=== PATIENT | female | born 1975 | race Caucasian/White ===

== ENCOUNTER 2017-10-06 08:07 | Observation (INO) | payer OTHER ==
[2017-10-06] VITALS (16 sets, daily range): BP systolic 86–146; BP diastolic 53–91
[~2017-10-06] VITALS: Ht 175.3 cm; Wt 110.2 kg
[~2017-10-06 08:07] MED LIST: LEVOTHYROXIN0.025 MG PO; OMEPRAZOLE40 MG PO; SINGULAIR10 MG PO; VICODIN 5/500 T1 TAB PO; ZOLOFT100 MG PO
--- OUTSIDE RECORDS SUMMARY | 2017-10-06 08:14 | External Medical Summary Rpt | CCD ---
Author Author , RAOUL SILVEIRA Address Unknown Phone [email or web address] Purpose Continuity of Care Document - 04-29-2017 through 2016 Problems Code Diagnosis DOS Provider Status D50.0 IRON DEFICIENCY ANEMIA SECONDARY TO BLOOD LOSS (CHRONIC) R00.2 PALPITATION S R07.89 OTHER CHEST PAIN Results Labs Lab Lab Date Result Refere Interp Status Commen Order Detail nces retati t Range on Crossmatch (10-05-2017 13:59) Immedia COMPAT complet te spin 017 COMPAT ed 13:59 L crossma tch Interpr COMPAT complet etation 017 COMPAT ed of 13:59 L major crossma tch resul Blood type and crossmatch (10-05-2017 13:59) Blood O O L complet ABO 017 ed group 13:59 typing Rh POSITIV complet blood 017 E ed group 13:59 POSITIV typing E L Materna NEGATIV NEGATIV complet l 017 E E ed antibod 13:59 NEGATIV y E L screen Blood type & Crossmatch panel in Blood (10-05-2017 13:59) Blood NEGATIV NEGATIV complet group 017 E E ed antibod 13:59 y screen [Presen ce] in Serum or Plasma Rh POSITIV complet [Type] 017 E ed in 13:59 Blood ABO O complet group 017 ed [Type] 13:59 in Blood Blood type & Crossmatch panel in Blood (10-05-2017 13:59) Major COMPAT complet crossma 017 ed tch 13:59 [interp retatio n] Major COMPAT complet crossma 017 ed tch 13:59 [interp retatio n] by Immedia te spin Crossmatch (10-05-2017 13:53) Immedia COMPAT complet te spin 017 COMPAT ed 13:53 L crossma tch Interpr COMPAT complet etation 017 COMPAT ed of 13:53 L major crossma tch resul Blood type & Crossmatch panel in Blood (10-05-2017 13:53) Major COMPAT complet crossma 017 ed tch 13:53 [interp retatio n] Major COMPAT complet crossma 017 ed tch 13:53 [interp retatio n] by Immedia te spin Comprehensive metabolic panel (10-03-2017 15:05) Protein = 7.2 6.4-8.2 complet total 017 gm/dL ed ser/dominique 15:05 s ALT = 77 12-78 complet (SGPT) 017 U/L ed ser/dominique 15:05 s Serum = 51 15-37 complet or 017 U/L ed plasma 15:05 asparta te aminotr ansfera Serum = 137 136-145 complet sodium 017 mmoL/L ed measure 15:05 ment Serum = 3.8 3.5-5.1 complet potassi 017 mmoL/L ed um 15:05 measure ment Serum = 90 74-106 complet or 017 mg/dL ed plasma 15:05 glucose measure ment (mas Serum = 3.3 1.3-3.2 complet globuli 017 gm/dL ed n 15:05 measure ment (mass/v olume) Estimat = 109 59- complet ed 017 ML/MIN ed glomeru 15:05 lar filtrat ion rate (GF Comment: REFERENCE RANGE: >60 ML/MIN/1.73 SQUARE METERS Comment: If this patient is -[place], then multiply the Comment: result by 1.210. Estimat = 210 50-200 complet ion of 017 ML/MIN ed creatin 15:05 ine renal clearan ce Serum = 0.6 0.55-1. complet or 017 mg/dL 02 ed plasma 15:05 creatin ine measure ment ( Carbon = 22 21.0-32 complet dioxide 017 mmoL/L .0 ed 15:05 measure ment Serum = 105 98-107 complet or 017 mmoL/L ed plasma 15:05 chlorid e measure ment (mo Serum = 8.9 8.5-10. complet or 017 mg/dL 1 ed plasma 15:05 calcium measure ment (mas Serum = 13 7-18 complet or 017 mg/dL ed plasma 15:05 urea nitroge n measure men Serum = 0.2 0.2-1.0 complet or 017 mg/dL ed plasma 15:05 total bilirub in measure m Serum = 67 46-116 complet or 017 U/L ed plasma 15:05 alkalin e phospha tase pito Serum = 3.9 3.4-5.0 complet or 017 gm/dL ed plasma 15:05 albumin measure ment (mas Serum = 1.2 1.1-1.8 complet or 017 ed plasma 15:05 albumin /globul in mass ra Cardiac enzymes (10-03-2017 15:05) Serum = 0.9 0-4.0 complet or 017 U/L ed plasma 15:05 creatin e kinase MB (CK-M Serum < 0.02 0.00-0. complet or 017 ng/mL 06 ed plasma 15:05 troponi n i.cardi ac measu Serum = 111 26-192 complet or 017 U/L ed plasma 15:05 creatin e kinase measure m Serum = 1.0 0.0-3.6 complet or 017 ng/mL ed plasma 15:05 creatin e kinase MB measu CBC w auto diff (10-03-2017 15:05) Blood = 7.0 4.8-10. complet leukocy 017 K/MM3 8 ed reina 15:05 count (number /volume ) Automat = 15.8 11.5-17 complet ed 017 % .5 ed erythro 15:05 cyte distrib ution width Red = 3.22 4.2-5.4 complet blood 017 M/mm3 ed cell 15:05 count Blood = 354 142-424 complet platele 017 K/mm3 ed t count 15:05 Automat = 8.0 7.4-10. complet ed 017 fl 4 ed blood 15:05 platele t mean volume pito [place] % = 6.4 % 1.7-9.3 complet 017 ed 15:05 Absolut = 0.5 0.1-1.0 complet e 017 K/mm3 ed monocyt 15:05 e count Automat = 90.5 82.2-97 complet ed 017 fl .8 ed erythro 15:05 cyte mean corpusc ular v Automat = 32.3 31.8-35 complet ed 017 g/dl .4 ed erythro 15:05 cyte mean corpusc ular h Mean = 29.3 27-31.2 complet corpusc 017 pg ed ular 15:05 hemoglo bin (MCH) determ Lymphoc = 36.5 10-50.0 complet yte 017 % ed count, 15:05 blood, automat ed Absolut = 2.6 0.7-4.5 complet e 017 K/mm3 ed lymphoc 15:05 yte count Blood = 9.4 12.2-16 complet hemoglo 017 g/dL .2 ed bin 15:05 measure ment (mass/v olum Blood = 29.2 37.0-47 complet hematoc 017 % .0 ed rit 15:05 (volume fractio n) Granulo = 53.7 37.0-80 complet cyte 017 % .0 ed percent 15:05 age Blood = 3.8 1.8-7.8 complet granulo 017 K/mm3 ed cytes 15:05 automat ed count (numb Automat = 2.5 % 0.1-12. 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: POST TRANSFUSION PT IN ROOM 210 Blood = 8.6 12.2-16 complet hemoglo 017 g/dL .2 ed bin 22:25 measure ment (mass/v olum Blood = 27.0 37.0-47 complet hematoc 017 % .0 ed rit 22:25 (volume fractio n) Leukocyte reduction of packed red blood (09-30-2017 19:22) Leukocy BLOOD complet te 017 UNIT ed reducti 19:22 RELEASE on of BLOOD packed UNIT red RELEASE blood L Comment: Comment: BLOOD UNIT # : [id number] O POS Comment: RELEASED 09/30/17 Polly Pool Blood product special preparation [Type] (09-30-2017 19:22) Blood BLOOD complet product 017 UNIT ed 19:22 RELEASE special prepara tion [Type] Leukocyte reduction of packed red blood (09-30-2017 16:25) Leukocy BLOOD complet te 017 UNIT ed reducti 16:25 RELEASE on of BLOOD packed UNIT red RELEASE blood L Comment: BLOOD UNIT # : [id number] Comment: RELEASED 09/30/17 Kiley Nicole Comment: O POS Blood product special preparation [Type] (09-30-2017 16:25) Blood BLOOD complet product 017 UNIT ed 16:25 RELEASE special prepara tion [Type] Whole blood hemoglobin and hematocrit pa (09-30-2017 15:15) Blood = 7.3 12.2-16 complet hemoglo 017 g/dL .2 ed bin 15:15 measure ment (mass/v olum Comment: CRITICAL RESULTS Comment: RESULTS CALLED TO: HARVEY 09/30/17 1540 Kiley Nicole Blood = 22.7 37.0-47 complet hematoc 017 % .0 ed rit 15:15 (volume fractio n) Comment: CRITICAL RESULTS Comment: RESULTS CALLED TO: HARVEY 09/30/17 1541 BrookeKiley hernández Leukocyte reduction of packed red blood (09-30-2017 12:23) Leukocy BLOOD complet te 017 UNIT ed reducti 12:23 RELEASE on of BLOOD packed UNIT red RELEASE blood L Comment: BLOOD UNIT # : [id number] RELEASED 09/30/17 Comment: Nona Blair Comment: Comment: O POSITIVE Comment: [id number] Blood product special preparation [Type] (09-30-2017 12:23) Blood BLOOD complet product 017 UNIT ed 12:23 RELEASE special prepara tion [Type] Crossmatch (09-29-2017 17:01) Comment: Hold? N Comment: Transfuse now? 2 UNITS NOW Immedia COMPAT complet te spin 017 COMPAT ed 17:01 L crossma tch Interpr COMPAT complet etation 017 COMPAT ed of 17:01 L major crossma tch resul Blood type & Crossmatch panel in Blood (09-29-2017 17:01) Major COMPAT complet crossma 017 ed tch 17:01 [interp retatio n] Major COMPAT complet crossma 017 ed tch 17:01 [interp retatio n] by Immedia te spin Blood type and crossmatch (09-29-2017 16:39) Materna NEGATIV NEGATIV complet l 017 E E ed antibod 16:39 NEGATIV y E L screen Rh POSITIV complet blood 017 E ed group 16:39 POSITIV typing E L Blood O O L complet ABO 017 ed group 16:39 typing Crossmatch (09-29-2017 16:39) Interpr COMPAT complet etation 017 COMPAT ed of 16:39 L major crossma tch resul Immedia COMPAT complet te spin 017 COMPAT ed 16:39 L crossma tch Blood type & Crossmatch panel in Blood (09-29-2017 16:39) Blood NEGATIV NEGATIV complet group 017 E E ed antibod 16:39 y screen [Presen ce] in Serum or Plasma Rh POSITIV complet [Type] 017 E ed in 16:39 Blood ABO O complet group 017 ed [Type] 16:39 in Blood Blood type & Crossmatch panel in Blood (09-29-2017 16:39) Major COMPAT complet crossma 017 ed tch 16:39 [interp retatio n] Major COMPAT complet crossma 017 ed tch 16:39 [interp retatio n] by Immedia te spin
--- OUTSIDE RECORDS SUMMARY | 2017-10-06 08:14 | External Medical Summary Rpt | CCD ---
Author Author , RAOUL SILVEIRA Address Unknown Phone [email or web address] Purpose Continuity of Care Document - 04-29-2017 [...] SQUARE METERS Comment: If this patient is -German, then multiply the Comment: result by 1.210. 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 PT IN ROOM 210 Blood [...] Comment: BLOOD UNIT # : [id number] O POS Comment: RELEASED 09/30/17 Polly Pool Blood product special preparation [Type] (09-30-2017 19:22) Blood BLOOD complet product 017 UNIT ed 19:22 RELEASE special prepara tion [Type] Leukocyte reduction of packed red blood (09-30-2017 16:25) Leukocy BLOOD complet te 017 UNIT ed reducti 16:25 RELEASE on of BLOOD packed UNIT red RELEASE blood L Comment: BLOOD UNIT # : [id number] Comment: RELEASED 09/30/17 Kiley Nicole Comment: [...] Comment: BLOOD UNIT # : [id number] RELEASED 09/30/17 Comment: Nona Blair Comment: Comment: [...]
--- OUTSIDE RECORDS SUMMARY | 2017-10-06 08:15 | External Medical Summary Rpt | CCD ---
Demographics Preferred Language Czech Marital Status Unknown Bahai Affiliation Unknown Race Unknown Ethnic Group Unknown Author Author , GINA SILVEIRA Address Unknown Phone Immunization No patient found.
--- OUTSIDE RECORDS SUMMARY | 2017-10-06 08:15 | External Medical Summary Rpt ---
Author Author RAOUL Cherry, [employer] Organization [employer] Address Unknown Phone Unavailable Results Blood type & Crossmatch panel in Blood Observa Value Referen Units Interpr Notes Date tion ce etation Range Blood NEGATIV NEGATIV No No No Nov 5 group E E informa informa informa 2017 antibod tion in tion in tion in 1:59 PM y source source source screen data data data [Presen ce] in Serum or Plasma Rh POSITIV No No No No Nov 5 [Type] E informa informa informa informa 2017 in tion in tion in tion in tion in 1:59 PM Blood source source source source data data data data ABO O No No No No Nov 5 group informa informa informa informa 2017 [Type] tion in tion in tion in tion in 1:59 PM in source source source source Blood data data data data Blood type & Crossmatch panel in Blood Observa Value Referen Units Interpr Notes Date tion ce etation Range Major COMPAT No No No No Nov 5 crossma informa informa informa informa 2017 tch tion in tion in tion in tion in 1:59 PM [interp source source source source retatio data data data data n] Major COMPAT No No No No Nov 5 crossma informa informa informa informa 2017 tch tion in tion in tion in tion in 1:59 PM [interp source source source source retatio data data data data n] by Immedia te spin Blood type & Crossmatch panel in Blood Observa Value Referen Units Interpr Notes Date tion ce etation Range Major COMPAT No No No No Nov 5 crossma informa informa informa informa 2017 tch tion in tion in tion in tion in 1:53 PM [interp source source source source retatio data data data data n] Major COMPAT No No No No Nov 5 crossma informa informa informa informa 2017 tch tion in tion in tion in tion in 1:53 PM [interp source source source source retatio data data data data n] by Immedia te spin CBC W Auto Differential panel in Blood Observa Value Referen Units Interpr Notes Date tion ce etation Range Basophils 0 - 0.2 K/MM3 Normal No Nov 3 informati 2016 3:05 [#/volume on in PM ] in source Blood by data Automated count Basophils 0.1 - 2.0 % Normal No Nov 3 /100 informati 2016 3:05 leukocyte on in PM s in source Blood by data Automated count Eosinophi 0.0 - 0.4 K/mm3 Normal No Oct 3 ls informati 2016 3:05 [#/volume on in PM ] in source Blood by data Automated count Eosinophi 0.1 - % Normal No Oct 3 ls/100 12.0 informati 2016 3:05 leukocyte on in PM s in source Blood by data Automated count Granulocy 1.8 - 7.8 K/mm3 Normal No Oct 3 reina informati 2016 3:05 [#/volume on in PM ] in source Blood by data Automated count Granulocy 37.0 - % Normal No Oct 3 reina/100 80.0 informati 2016 3:05 leukocyte on in PM s in source Blood by data Automated count Hematocri 37.0 - % Low No Oct 3 t [Volume 47.0 informati 2016 3:05 on in PM Fraction] source of Blood data Hemoglobi 12.2 - g/dL Low No Oct 3 n 16.2 informati 2016 3:05 [Mass/vol on in PM ume] in source Blood data Lymphocyt 0.7 - 4.5 K/mm3 Normal No Oct 3 es informati 2016 3:05 [#/volume on in PM ] in source Unspecifi data ed specimen by Automated count Lymphocyt 10 - 50.0 % Normal No Oct 3 es informati 2016 3:05 [#/volume on in PM ] in source Unspecifi data ed specimen by Automated count Erythrocy 27 - 31.2 pg Normal No Oct 3 te mean informati 2016 3:05 corpuscul on in PM ar source hemoglobi data n [Entitic mass] Erythrocy 31.8 - g/dl Normal No Oct 3 te mean 35.4 informati 2016 3:05 corpuscul on in PM ar source hemoglobi data n concentra tion [Mass/vol ume] by Automated count Erythrocy 82.2 - fl Normal No Oct 3 te mean 97.8 informati 2016 3:05 corpuscul on in PM ar volume source [Entitic data volume] by Automated count Monocytes 0.1 - 1.0 K/mm3 Normal No Oct 3 informati 2016 3:05 [#/volume on in PM ] in source Blood by data Automated count Monocytes 1.7 - 9.3 % Normal No Oct 3 /100 informati 2016 3:05 leukocyte on in PM s in source Blood by data Automated count Platelet 7.4 - fl Normal No Oct 3 mean 10.4 informati 2016 3:05 volume on in PM [Entitic source volume] data in Blood by Automated count Platelets 142 - 424 K/mm3 No No Oct 3 informati informati 2016 3:05 [#/volume on in on in PM ] in source source Blood data data Erythrocy 4.2 - 5.4 M/mm3 Low No Oct 3 reina informati 2016 3:05 [#/volume on in PM ] in source Amniotic data fluid Erythrocy 11.5 - % Normal No Oct 3 te 17.5 informati 2016 3:05 distribut on in PM ion width source [Entitic data volume] by Automated count Leukocyte 4.8 - K/MM3 Normal No Oct 3 s 10.8 informati 2016 3:05 [#/volume on in PM ] in source Blood data Hemoglobin & Hematocrit panel in Blood Observa Value Referen Units Interpr Notes Date tion ce etation 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: POST TRANSFUSION PT IN ROOM 210 Hematocri 37.0 - % Low No Sep 30 t [Volume 47.0 informati 2016 on in 10:25 PM Fraction] source of Blood data Hemoglobi 12.2 - g/dL Low No Sep 30 n 16.2 informati 2016 [Mass/vol on in 10:25 PM ume] in source Blood data Blood product special preparation [Type] Observa Value Referen Units Interpr Notes Date tion ce etation Range Blood BLOOD No No No BLOOD Sep 30 product UNIT informa informa informa UNIT # 2017 RELEASE tion in tion in tion in : [id number] 7:22 PM special source source source 17 data data data [id number] prepara O tion POSRELE [Type] ASED 7 Gwyn Pool Blood product special preparation [Type] Observa Value Referen Units Interpr Notes Date tion ce etation Range Blood BLOOD No No No BLOOD Sep 30 product UNIT informa informa informa UNIT # 2017 RELEASE tion in tion in in : 4:25 PM special source source source [id number] data data data [id number] prepara 7 tion [id number] [Type] LEASED 7 Cracraf t,JodyO POS Hemoglobin & Hematocrit panel in Blood Observa Value Referen Units Interpr Notes Date ti ce etation Range Hematocri 37.0 - % Low alert Sep 30 t [Volume 47.0 2016 3:15 CRITICAL PM Fraction] RESULTS of Blood RESU LTS CALLED TO: KUSHW 09/30/17 1541 CraKiley sahni Hemoglobi 12.2 - g/dL Low alert Sep 30 n 16.2 2016 3:15 [Mass/vol CRITICAL PM ume] in RESULTS Blood RESU LTS CALLED TO: HARVEY 09/30/17 1540 Kiley Nicole Blood product special preparation [Type] Observa Value Referen Units Interpr Notes Date ti ce etation Range Blood BLOOD No No No BLOOD Sep 30 product UNIT informa informa informa UNIT # 2017 RELEASE tion in on in in : [id number] 12:23 special source source source 17 PM data data data [id number] prepara RELEASE tion D [Type] 7Boyers ,Lucind aO POSITIV [id number] Blood type & Crossmatch panel in Blood Observa Value Referen Units Interpr Notes Date ti ce etation Range Hold? N Transfuse now? 2 UNITS NOW Major COMPAT No No No No Sep 29 crossma informa informa informa informa 2017 tch tion in tion in tion in tion in 5:01 PM [interp source source source source retatio data data data data n] Major COMPAT No No No No Sep 29 crossma informa informa informa informa 2017 tch tion in tion in tion in tion in 5:01 PM [interp source source source source retatio data data data data n] by Immedia te spin Blood type & Crossmatch panel in Blood Observa Value Referen Units Interpr Notes Date tion ce etation Range Hold? N Transfuse now? 2 UNITS NOW Major COMPAT No No No No Sep 29 crossma informa informa informa informa 2017 tch tion in tion in tion in tion in 5:01 PM [interp source source source source retatio data data data data n] Major COMPAT No No No No Sep 29 crossma informa informa informa informa 2017 tch tion in tion in tion in tion in 5:01 PM [interp source source source source retatio data data data data n] by Immedia te spin Blood type & Crossmatch panel in Blood Observa Value Referen Units Interpr Notes Date ti ce etation Range Blood NEGATIV NEGATIV No No No Sep 29 group E E informa informa informa 2017 antibod tion in tion in ti in 4:39 PM y source source source screen data data data [Presen ce] in Serum or Plasma Rh POSITIV No No No No Sep 29 [Type] E informa informa informa informa 2016 in tion in tion in tion in tion in 4:39 PM Blood source source source source data data data data ABO O No No No No Sep 29 group informa informa informa informa 2017 [Type] tion in tion in tion in tion in 4:39 PM in source source source source Blood data data data data Blood type & Crossmatch panel in Blood Observa Value Referen Units Interpr Notes Date ti ce etation Range Major COMPAT No No No No Sep 29 crossma informa informa informa informa 2017 tch tion in tion in tion in tion in 4:39 PM [interp source source source source retatio data data data data n] Major COMPAT No No No No Sep 29 crossma informa informa informa informa 2017 tch tion in tion in tion in tion in 4:39 PM [interp source source source source retatio data data data data n] by Immedia te spin Choriogonadotropin [Units/volume] in Serum or Plasma Observa Value Referen Units Interpr Notes Date tion ce etation Range Choriogon NEG No No No April 29 adotropin informati informati informati 2016 2:51 on in on in on in PM [Units/vo source source source lume] in data data data Serum or Plasma
--- OUTSIDE RECORDS SUMMARY | 2017-10-06 08:15 | External Medical Summary Rpt ---
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 PT IN ROOM 210 Hematocri [...] source source source 17 data data data [id number] prepara O tion POSRELE [Type] ASED 7 Gwyn Pool Blood product special preparation [Type] Observa Value Referen Units Interpr Notes Date tion ce etation Range Blood BLOOD No No No BLOOD Sep 30 product UNIT informa informa informa UNIT # 2017 RELEASE tion in tion in in : 4:25 PM special source source source [id number] data data data [id number] prepara 7 tion [id number] [Type] LEASED 7 Cracraf t,JodyO POS Hemoglobin [...] source source 17 PM data data data [id number] prepara RELEASE tion D [Type] 7Boyers ,Lucind aO POSITIV [id number] Blood type & Crossmatch panel in Blood [...]
--- OUTSIDE RECORDS SUMMARY | 2017-10-06 08:15 | External Medical Summary Rpt | CCD ---
Demographics Preferred Language Welsh Marital Status Unknown Rastafarian Affiliation Unknown Race Unknown Ethnic Group Unknown Author Author , GINA SILVEIRA Address Unknown Phone Immunization No patient found.
--- NOTE | 2017-10-06 09:56 | PHARMACY CLINIC NOTE ---
Patient Demographics Patient Demographics Admission date: 10/06/17 Date: 10/06/17 Time: 09 Allergies Coded Allergies: No Known Allergies (10/03/17) HEIGHT- FT: 5 IN: 9.00 VTE General Information Disclaimer The following section includes nursing documentation that has been pulled in for pharmacy review. VTE prophylaxis NQF 0371 VTE prophylaxis ordered? Yes Type of prophylaxis/treatment: Lovenox at 0955
--- NOTE | 2017-10-06 13:36 | Operative Note ---
Procedure/Operative Record Procedure Date of procedure: 10/06/17 Pre-Op Dx: Menorrhagia, fibroid uterus, anemia Post-Op Dx: Menorrhagia, fibroid uterus, anemia Procedure performed: Laparoscopically assisted vaginal hysterectomy and bilateral salpingectomy Surgeon: Dr. Hema Day [employer] R[employer] Manager(s): Chaparrita Newton Anesthesia: Ronald Nam EBL (ml): 250 Clinical note: She is a 42-year-old lady who complains of extremely heavy periods. She required a transfusion last week. Her ultrasound showed a 6 cm intrauterine fibroid. After having discussed the risks and benefits we elected to perform a laparoscopic assisted vaginal hysterectomy and bilateral salpingectomy. Operative findings: She had a normal-appearing pelvis although there were adhesions of omentum to the anterior abdominal wall all along the anterior pelvis from just below the umbilicus to the top of the bladder flap. Within these adhesions there was a tubular structure possibly a blood vessel but there was no evidence of urine leaking from this vessel and after I finished the vaginal portion of the surgery I did a cystoscopy and there was urine jets seen from both ureters. This tubular structure was not attached to anything. It is certainly possible that it was an obliterated umbilical vein. The ovaries and tubes appeared normal. The uterus was enlarged and contained a 6 cm fibroid within the uterus. The deep pelvis appeared normal. The upper abdomen was examined and appeared normal as well. Operative note: She was taken to the operating room where general anesthesia was found be adequate. She was prepped and draped in the normal sterile fashion in the semi- lithotomy position. A weighted speculum was placed in the vagina and the anterior lip of the cervix was grasped with a tenaculum. I then inserted a Annie uterine manipulator into the uterine cavity and insufflated the balloon. I changed gloves and then injected 10 mL of 0.5 percent ropivacaine around the umbilicus. I made a small incision within the umbilicus and inserted a Veress needle into the abdominal cavity. The abdominal cavity was then insufflated with carbon oxide gas to a pressure of 20 mmHg. I then inserted an 11 mm trocar under direct vision. I injected through and through the pubic hairline, made a small incision here and inserted a 5 mm trocar under direct vision. I then identified the inferior epigastric arteries on the LEFT side, went lateral to these and injected through and through. I inserted 11 mm trocar under direct vision. This was similarly performed on the patient's RIGHT side. There were adhesions all along the anterior abdominal wall and I took these down with Harmonic scalpel. I was very careful to make sure there was nothing within the adhesions. When I got down to the last bit of adhesions it was noted that there was a tubular structure within the adhesions however there was no fluid leaking from this structure and it did not seem to be attached anything. I suspect it was a redundant umbilical vein. Using harmonic scalpel I then cut through the LEFT round ligament. I opened up the anterior aspect of the peritoneum to the midline. I then took down the LEFT tube and LEFT utero-ovarian ligament with Harmonic scalpel. I then dissected down the bladder anteriorly. The posterior aspect of the broad ligament was then taken down to the level of the uterosacral ligaments using Harmonic scalpel. I then skeletonized the uterine arteries and using hemoclips and harmonic scalpel I took down the uterine arteries on the LEFT side. After assuring hemostasis I then turned my attention to the RIGHT side. The RIGHT round ligament was grasped and taken down with Harmonic scalpel. I then opened up the anterior aspect of the peritoneum to the midline joining up with the other side. I then took down the LEFT tube and LEFT uterine ovarian ligament with Harmonic scalpel. Once again I took down the posterior aspect of the broad ligament to the level of the uterosacral ligament on the RIGHT side. I then skeletonized the uterine arteries once again and using Harmonic scalpel and hemoclips I took down the uterine arteries on the RIGHT side. I further dissected the bladder off anteriorly. After assuring hemostasis we then turned our attention to the patient's vaginal portion of the surgery. The patient was placed in the lithotomy position and a weighted speculum was placed in vagina. The anterior and posterior lip of the surgical grasped with Maravilla tenacula. I then injected 20 mL of 1 percent Xylocaine with epinephrine circumferentially about the cervix. I then circumscribed the cervix with knife. I then opened up and the posterior cul-de-sac using Delgadillo scissors. A long weighted speculum was placed through this defect. The LEFT uterosacral ligament was then clamped, cut, suture-ligated and tagged. This was followed by the LEFT cardinal ligament which was clamped cut and suture ligated. We then clamped cut suture-ligated and tagged the RIGHT uterosacral ligament followed by the RIGHT cardinal ligament. Using both blunt and sharp dissection I then dissected the bladder off from the anterior cervix. I opened up into the peritoneum anteriorly and inserted a Gwendolyn retractor through this defect. I then clamped cut and suture ligated the remaining tissue attaching the cervix. The uterus was then removed through the vagina in its entirety. The posterior cuff was then closed using running 2-0 Vicryl suture in a locked fashion. I then placed a Banerjee suture using 0 PDS first through the posterior vagina and peritoneum, through the LEFT pararectal fascia and then I plicated across the posterior peritoneum. This was then passed through the RIGHT pararectal fascia and then out through the peritoneum vagina. The suture was LEFT to be tied at the end. I then closed the vaginal mucosa using running 0 Vicryl suture in a locked fashion from LEFT to RIGHT from anterior to posterior. I then drained the bladder inserted a 70 degree cystoscope in the bladder using saline as a distending media. I was able to see urine jets coming from both ureters. We then inserted a Mancini catheter in the bladder. I then changed gloves and turned my attention to the laparoscopic portion of the surgery once again. We inspected for hemostasis and there was a small amount of bleeding near the bladder and I elected to place a single [id number]-[id number] suture here using laparoscopic suturing technique. After once again assuring hemostasis of then placed 3 large pieces of Surgicel into the pelvis. I injected 20 mL of 0.5 percent ropivacaine into the pelvis. We then let the gas out of the abdomen and assured there was adequate hemostasis. The secondary trochars were then removed under direct vision. The sites were hemostatic. The primary trocar and camera were removed together. No bowel was seen to follow. The 11 mm trocar sites were closed deeply with 2-0 Vicryl suture followed by interrupted subcuticular 4-0 Monocryl suture. The 5 mm trocar site was closed with subcuticular 4-0 Monocryl suture. Sterile dressings were applied. The patient tolerated the procedure well and was taken to the recovery room in excellent condition. All sponge instrument and needle counts were correct. Estimate a blood loss was approximately 250 mL. Her hemoglobin was 8.4 prior to surgery suturing surgery she received 2 units of packed red blood cells. Conplications: None Specimens: Uterus, fallopian tubes at 1666
--- NOTE | 2017-10-06 13:47 | Anesthesia Record ---
Anesthesia Record Part II Discharge time: 1405 Destination: Second Floor PACU nurse assessment review? Yes Patient is: Stable Anesthesia complications? No at 1340
--- NOTE | 2017-10-06 13:47 | Anesthesia Record ---
Anesthesia Record Part I Total IV fluids: 2100 EBL (ml): 250 Urine Output: 100 B/P: 123/60 % SaO2: 96 Pulse: 82 Resps: 16 Temp: 97.4 Patient is: Drowsy, Nasal O2, Stable Stable to PACU at: 1335 at 1346
[2017-10-06 16:15] LABS: HEMOGLOBIN 10.1 g/dL (12.2-16.2)
[2017-10-06 16:29] LABS: URINE BILIRUBIN - DIPSTICK NEGATIVE (NEG); URINE BLOOD 1+ (NEG)
[2017-10-07 05:30] VITALS: BP 166/83
[2017-10-07 07:12] LABS: HEMOGLOBIN 9.8 g/dL (12.2-16.2); LYMPH # 1.8 K/mm3 (0.7-4.5); LYMPH % 12.1 % (10-50.0)
[2017-10-07 08:00] VITALS: BP 122/77
--- NOTE | 2017-10-07 08:11 | Discharge Summary ---
Discharge Summary Admission date: 10/06/17 Discharge date: 10/07/17 Discharge diagnoses: Menorrhagia, anemia, fibroid uterus, pelvic peritoneal adhesions Clinical note: She is a 42-year-old lady who complains of extremely heavy periods. She was seen last week and required a transfusion as result of her periods. She has a 6 cm submucous fibroid. As result of that she was offered laparoscopically assisted vaginal hysterectomy and bilateral salpingectomy. Course in hospital: On October 06, 2017 she underwent a laparoscopically assisted vaginal hysterectomy and bilateral salpingectomy. She has done well postoperatively and has remained afebrile throughout her hospitalization. She is eating and drinking and ambulating. She still has a Mancini catheter this morning but we'll remove this. As long she is voiding well she'll go home later today. She denies any chest pain, shortness of breath or calf tenderness. Vital signs are stable and heart sounds as well as respiratory examination is normal. Her bowel sounds are present and her incisions are clean and dry. Laboratory Tests 10/07/17 0641: Sodium 136, Potassium 3.9, Chloride 105, Carbon Dioxide 25, BUN 7, Creatinine 0.6, Estimated Creat Clear 210 H, Estimated GFR (MDRD) 109, Glucose 106, Calcium 8.6, WBC 14.8 H, RBC 3.42 L, Hgb 9.8 L, Hct 31.4 L, MCV 91.9, RDW 16.0, Plt Count 303, MPV 8.3, Gran % 80.9 H, Gran # 12.0 H, Lymphocytes % 12.1 , Monocytes % 6.7, Eosinophils % 0.1, Basophils % 0.2, Lymphocytes # 1.8, Monocytes # 1.0, Eosinophils # 0.0, Basophils # 0.0, PUBS MCHC 31.1 L, MCH 28.6 10/06/17 1603: Hgb 10.1 L, Hct 32.5 L 10/06/17 1230: Urine Color OTHER, Urine Appearance CLEAR, Urine pH 6.5, Ur Specific [place] 1.020, Urine Protein TRACE H, Urine Ketones NEGATIVE, Urine Blood 1+ H, Urine Nitrate NEGATIVE, Urine Bilirubin NEGATIVE, Urine Urobilinogen 0.2, Ur Leukocyte Esterase NEGATIVE, Urine RBC 3-5, Urine WBC OCC, Ur Squamous Epith Cells 3-5, Urine Bacteria 2+, Urine Glucose NEGATIVE 11/06/17 1129: Misc Test Units BLOOD UNIT RELEASE 10/06/17 1051: Misc Test Units BLOOD UNIT RELEASE Microbiology 10/06 1230 URINE CATH: Urine Culture - RES Plans for ongoing care: She is discharged home to follow-up with me in approximately 2 weeks' time. Discharge medications She will continue with her home medications. She was given a pressure for for Percocet 5/325, 20 tablets. DC/follow-up instructions She was given the usual instructions with respect to limiting her activity, driving and sexual activity. She was given instructions with respect to wound care. Condition at discharge Stable and improved at 0811
[2017-10-07] MEDS ORDERED: PERCOCET 5/3251 EACH PO (08:12)
[2017-10-07 11:15] VITALS: BP 122/77
== END 2017-10-07 11:15 | disposition home or self-care (01) ==
LOC: SDC 08:07 → OB 08:11 → SDC 09:45 → OB 14:25
PROVIDERS: Nurse Practitioner Obstetrics & Gynecology
PROC: 0UT7FZZ Resection of Bilateral Fallopian Tubes, Via Natural or Artificial Opening With Percutaneous Endoscopic Assistance (ICD-10-PCS; principal; 2017-10-06 09:45)
PROC: 0UT9FZZ Resection of Uterus, Via Natural or Artificial Opening With Percutaneous Endoscopic Assistance (ICD-10-PCS; principal; 2017-10-06 09:45)
DX: N92.0 Excessive and frequent menstruation with regular cycle (principal); D25.9 Leiomyoma of uterus, unspecified; D64.9 Anemia, unspecified; N73.6 Female pelvic peritoneal adhesions (postinfective)
CPT/HCPCS: G0238; G0378; J0131; J2405; P9016